=== PATIENT | male | born 1925 | race Caucasian/White ===

== ENCOUNTER → 2016-09-12 | Outpatient (CLI) | payer MEDICARE ==
[~2016-09-12] MED LIST: BETAPACE (GENER80 MG PO; MAGOX 400400 MG PO; NORVASC5 MG PO; OMEPRAZOLE40 MG PO; PRESERVISION L1 EACH PO; VITAMIN D-32000 UNI1 PO; XTANDI40 MG PO; ZOCOR40 MG PO
== END | disposition disaster alternative care site (69) ==
LOC: GOPD 09-09 → GRAD 13:30 → GOPD 15:00
PROC: 0T25X0Z Change Drainage Device in Kidney, External Approach (ICD-10-PCS; principal; 2016-09-12)
DX: Z46.82 Encounter for fitting and adjustment of non-vascular catheter (principal)
CPT/HCPCS: C1729; C1769; J7030